=== PATIENT | male | born 1975 | race Caucasian/White ===

== ENCOUNTER → 2018-05-14 07:34 | Outpatient (CLI) | payer OTHER, SELFPAY ==
[2018-05-14 08:13] LABS: Add Manual Diff / Slide Review NO; Basophils Percent Auto 0.6 % (0-2); Eosinophils Percent Auto 7.2 % (2-4); Hemoglobin 14.6 g/dL (13.5-17.5); Lymphocytes Percent Auto 38.1 % (25-40); Mean Corpuscular HGB Conc 33.9 % (30-36); Mean Corpuscular Hemoglobin 31.4 PG (26-34); Mean Corpuscular Volume 92.4 fL (80-100); Monocytes Percent Auto 10.7 % (3-14); Neutrophils Absolute Auto 2000 /uL (3000-5900); Neutrophils Percent Auto 43.4 % (50-75); Platelet Count 188 X10^3/uL (150-400); Red Blood Cell Count 4.66 X10^6/uL (4.5-5.9); Red Cell Distribution Width 12.8 % (11.6-14.8); White Blood Cell Count 4.7 X10^3/uL (4.5-11.0)
[2018-05-14 08:23] LABS: Hemoglobin A1C% w Est Avg Glu 8.6 % (4.0-6.0)
[2018-05-14 08:40] LABS: Creatinine Urine Random 249.5 mg/dL
[2018-05-14 08:43] LABS: Alanine Aminotransferase 33 IU/L (21-72); Albumin 4.6 g/dL (3.5-5.0); Albumin Globulin Ratio 1.6 (1.0-2.8); Alkaline Phosphatase 62 U/L (38-126); Aspartate Aminotransferase 24 IU/L (17-59); Bilirubin Total 0.7 mg/dL (0.2-1.3); Blood Urea Nitrogen 18 mg/dL (9-20); Calcium 9.2 mg/dL (8.4-10.2); Carbon Dioxide 30 mmol/L (22-32); Chloride 99 mmol/L (98-107); Cholesterol 254 mg/dL (140-199); Estimated Glomerular Filt Rate > 60.0 mL/min (>60); Globulin 2.8 g/dL (1.7-4.1); Glucose 162 mg/dL (70-100); HEMOLYSIS < 15 (0-50); Sodium 140 mmol/L (137-145); Total Protein 7.4 g/dL (6.3-8.2); Triglycerides 83 mg/dL (35-150)
[2018-05-14 08:44] LABS: Microalbumi Creatinin Ratio Ur 5.2 ug/mg CR (<30); Microalbumin Urine Random 1.3 mg/dL (0-1.6)
[2018-05-14 09:04] LABS: HDL Cholesterol 123 mg/dL (40-60); LDL Cholesterol Calculated 114 mg/dL (<100)
[2018-05-14 09:09] LABS: Prostate Specific Antigen Scrn 1.66 ng/mL (0.1-4.0); TSH w/ Reflex to FT4 2.09 uIU/mL (0.47-4.68)
== END ==
PROVIDERS: Visit Provider Family Medicine
DX: Z00.00 Encounter for general adult medical examination without abnormal findings (principal); E10.9 Type 1 diabetes mellitus without complications; Z12.5 Encounter for screening for malignant neoplasm of prostate
CPT/HCPCS: 36415; 80053; 80061; 82043; 82570; 83036; 84443; 85025; G0103

== ENCOUNTER → 2018-10-24 11:49 | Outpatient (CLI) | payer OTHER, SELFPAY ==
--- NOTE | 2018-10-24 11:52 | DI.RAD.S_ITS ---
PROCEDURE: XR ANKLE LT MIN 3V INDICATIONS: Rule out fracture of foot/ankle TECHNIQUE: 3 views of the ankle were acquired. COMPARISON: [facility], CR, XR FOOT LT MIN 3V, 10/24/2018, 11:55. FINDINGS: Bones: There are well-corticated osseous body distal to the left distal fibular epiphysis and at the posterior tibiotalar joint. There is a oblique linear lucency through the proximal base of the left fifth metatarsal. Soft tissues: There is a small tibiotalar joint effusion. There is moderate soft tissue swelling about the left ankle. IMPRESSION: 1. No acute fracture or dislocation of the left ankle identified. Recommend followup left ankle radiographs in 7-10 days to rule out an occult fracture given the presence of the moderate left ankle soft tissue swelling and joint effusion. 2. Oblique linear lucency through the proximal base of the left fifth metatarsal may represent a nondisplaced fracture versus unfused physis. 3. Well corticated joint body is distal to the left fibular epiphysis and at the posterior left tibiotalar joint may be the sequela of prior chronic fractures versus degenerative change. Dictated by: Reynaldo Valdez M.D. on 10/24/2018 at 13:19 Approved by: Reynaldo Valdez M.D. on 10/24/2018 at 13:27
--- NOTE | 2018-10-24 11:52 | DI.RAD.S_ITS ---
PROCEDURE: XR FOOT LT MIN 3V INDICATIONS: Rule out fracture of foot/ankle TECHNIQUE: 3 views of the foot were acquired. COMPARISON: None. FINDINGS: Bones: There is oblique linear lucency through the proximal base of the left fifth metatarsal, seen on lateral view. Well corticated bodies are identified projecting posterior to the left tibiotalar joint Soft tissues: There is a small tibiotalar joint effusion. IMPRESSION: Oblique linear lucency through the proximal base of the left metatarsal may represent a nondisplaced fracture versus unfused physis. Recommend followup radiographs in 7-10 days for further evaluation. Dictated by: Reynaldo Valdez M.D. on 10/24/2018 at 13:27 Approved by: Reynaldo Valdez M.D. on 10/24/2018 at 13:31
== END ==
PROVIDERS: PCP Family Medicine; Visit Provider Nurse Practitioner
DX: M25.572 Pain in left ankle and joints of left foot (principal); M25.475 Effusion, left foot
CPT/HCPCS: 73610; 73630

== ENCOUNTER → 2022-06-29 10:57 | Outpatient (CLI) | payer OTHER, SELFPAY ==
[2022-06-29 12:28] LABS: Add Manual Diff / Slide Review NO; Basophils Absolute Auto 0 /uL (0-100); Basophils Percent Auto 0.6 % (0-2); Eosinophils Absolute Auto 100 /uL (0-450); Eosinophils Percent Auto 2.3 % (2-4); Hematocrit 40.1 % (41-53); Hemoglobin 13.8 g/dL (13.5-17.5); Lymphocytes Absolute Auto 1400 /uL (1100-4500); Lymphocytes Percent Auto 29.1 % (25-40); Mean Corpuscular HGB Conc 34.4 % (30-36); Mean Corpuscular Hemoglobin 31.3 PG (26-34); Mean Corpuscular Volume 90.8 fL (80-100); Monocytes Absolute Auto 500 /uL (0-900); Monocytes Percent Auto 10.2 % (3-14); Neutrophils Absolute Auto 2900 /uL (1500-7000); Neutrophils Percent Auto 57.8 % (50-75); Platelet Count 206 X10^3/uL (150-400); Red Blood Cell Count 4.42 X10^6/uL (4.5-5.9); Red Cell Distribution Width 12.5 % (11.6-14.8)
[2022-06-29 12:30] LABS: Hemoglobin A1C% w Est Avg Glu 8.9 % (4.0-6.0)
[2022-06-29 13:14] LABS: Thyroid Stimulating Hormone 0.948 uIU/mL (0.47-4.68)
[2022-06-29 23:49] LABS: Alanine Aminotransferase 22 IU/L (<50); Albumin 4.4 g/dL (3.5-5.0); Albumin Globulin Ratio 1.5 (1.0-2.8); Alkaline Phosphatase 75 U/L (38-126); Aspartate Aminotransferase 21 IU/L (17-59); BUN Creatinine Ratio 17.9 (6-22); Bilirubin Total 0.5 mg/dL (0.2-1.3); Blood Urea Nitrogen 15 mg/dL (9-20); Carbon Dioxide 28 mmol/L (22-32); Chloride 95 mmol/L (98-107); Cholesterol 229 mg/dL (140-199); Estimated Glomerular Filt Rate > 60 mL/min (>60); Globulin 2.9 g/dL (1.7-4.1); Glucose 210 mg/dL (70-100); HDL Cholesterol 88 mg/dL (40-60); HEMOLYSIS < 15 (0-50); LDL Cholesterol Calculated 129 mg/dL (<100); Potassium 4.1 mmol/L (3.4-5.1); Sodium 134 mmol/L (137-145); Total Protein 7.3 g/dL (6.3-8.2); Triglycerides 62 mg/dL (35-150)
[2022-06-30 00:17] LABS: Prostate Specific Antigen Scrn 2.06 ng/mL (0.1-4.0)
== END ==
PROVIDERS: PCP Family Medicine; Referring Provider Family Medicine; Visit Provider Family Medicine
DX: E10.9 Type 1 diabetes mellitus without complications (principal); Z13.220 Encounter for screening for lipoid disorders; Z79.899 Other long term (current) drug therapy; Z12.5 Encounter for screening for malignant neoplasm of prostate; Z13.29 Encounter for screening for other suspected endocrine disorder
CPT/HCPCS: 36415; 80053; 80061; 83036; 84443; 85025; G0103

== ENCOUNTER → 2023-11-20 10:45 | Outpatient (CLI) | payer OTHER, SELFPAY ==
--- NOTE | 2023-11-20 10:46 | DI.RAD.S_ITS ---
PROCEDURE: XR LUMBAR SPINE 2-3V INDICATIONS: low back pain TECHNIQUE: 3 views of the lumbar spine were acquired. COMPARISON: None. FINDINGS: Bones: 5 [id number]-jzmeayu vertebrae are present. There is normal bony alignment. No vertebral body compression fractures. No suspicious bony lesions. Mild degenerative disc disease and facet arthropathy at L4-L5 and L5-S1. Question pars defect at L5. Soft tissues: Overlying bowel gas pattern is normal. No suspicious soft tissue calcifications. IMPRESSION: 1. No acute bony abnormality. 2. Mild degenerative disc and facet disease in lumbar spine. 3. Question pars defect at L5. Consider oblique views. Dictated by: Karol Bustamante M.D. on 11/20/2023 at 13:57 Approved by: Karol Bustamante M.D. on 11/20/2023 at 13:58
--- NOTE | 2023-11-20 10:46 | DI.RAD.S_ITS ---
PROCEDURE: XR CHEST 2V INDICATIONS: cough TECHNIQUE: 2 views of the chest were acquired. COMPARISON: [facility], , CHEST 1 VIEW, 07/04/2012, 11:36. FINDINGS: Surgical changes and devices: None. Lungs and pleura: Lungs are clear. No pleural effusions or pneumothorax. Mediastinum: Mediastinal contours are normal. Heart size is normal. Bones and chest wall: No suspicious bony abnormalities. Soft tissues appear unremarkable. IMPRESSION: No acute cardiopulmonary abnormality is seen. Dictated by: Karol Bustamante M.D. on 11/20/2023 at 13:51 Approved by: Karol Bustamante M.D. on 11/20/2023 at 13:51
== END ==
PROVIDERS: PCP Family Medicine; Referring Provider Family Medicine; Visit Provider Family Medicine
DX: E10.319 Type 1 diabetes mellitus with unspecified diabetic retinopathy without macular edema (principal); E10.9 Type 1 diabetes mellitus without complications; M54.9 Dorsalgia, unspecified; R06.02 Shortness of breath
CPT/HCPCS: 71046; 72100

== ENCOUNTER → 2024-01-12 11:36 | Outpatient (CLI) | payer OTHER, SELFPAY ==
[2024-01-12 12:25] LABS: Add Manual Diff / Slide Review NO; Basophils Absolute Auto 0 /uL (0-100); Basophils Percent Auto 0.8 % (0-2); Eosinophils Absolute Auto 200 /uL (0-450); Eosinophils Percent Auto 3.8 % (2-4); Hemoglobin 14.5 g/dL (13.5-17.5); Lymphocytes Absolute Auto 1400 /uL (1100-4500); Lymphocytes Percent Auto 32.8 % (25-40); Mean Corpuscular HGB Conc 34.5 % (30-36); Mean Corpuscular Hemoglobin 31.9 PG (26-34); Mean Corpuscular Volume 92.5 fL (80-100); Monocytes Absolute Auto 600 /uL (0-900); Monocytes Percent Auto 12.9 % (3-14); Neutrophils Absolute Auto 2200 /uL (1500-7000); Neutrophils Percent Auto 49.7 % (50-75); Platelet Count 207 X10^3/uL (150-400); Red Blood Cell Count 4.54 X10^6/uL (4.5-5.9); White Blood Cell Count 4.4 X10^3/uL (4.5-11.0)
[2024-01-12 13:03] LABS: Alanine Aminotransferase 19 IU/L (<50); Albumin 4.4 g/dL (3.5-5.0); Albumin Globulin Ratio 1.6 (1.0-2.8); Alkaline Phosphatase 62 U/L (38-126); Aspartate Aminotransferase 22 IU/L (17-59); Bilirubin Total 0.5 mg/dL (0.2-1.3); Blood Urea Nitrogen 16 mg/dL (9-20); Calcium 9.2 mg/dL (8.4-10.2); Carbon Dioxide 30 mmol/L (22-32); Chloride 99 mmol/L (98-107); Cholesterol 257 mg/dL (140-199); Estimated Glomerular Filt Rate > 60 mL/min (>60); Globulin 2.8 g/dL (1.7-4.1); Glucose 181 mg/dL (70-100); HEMOLYSIS < 15 (0-50); Potassium 4.1 mmol/L (3.4-5.1); Sodium 136 mmol/L (137-145); Total Protein 7.2 g/dL (6.3-8.2); Triglycerides 34 mg/dL (35-150)
[2024-01-12 13:04] LABS: Hemoglobin A1C% w Est Avg Glu 8.1 % (4.0-6.0)
[2024-01-12 13:13] LABS: HDL Cholesterol 136 mg/dL (40-60); LDL Cholesterol Calculated 114 mg/dL (<100)
[2024-01-12 13:31] LABS: TSH w/ Reflex to FT4 0.82 uIU/mL (0.47-4.68)
[2024-01-12 15:47] LABS: Microalbumin Urine Random < 0.6 mg/dL (0-1.6)
[2024-01-12 17:01] LABS: Creatinine Urine Random 13.39 mg/dL
== END ==
LOC: LAB 11:39
PROVIDERS: PCP Family Medicine; Referring Provider Family Medicine; Visit Provider Family Medicine
DX: E10.319 Type 1 diabetes mellitus with unspecified diabetic retinopathy without macular edema (principal); E10.9 Type 1 diabetes mellitus without complications; M54.9 Dorsalgia, unspecified; R06.02 Shortness of breath
CPT/HCPCS: 36415; 80053; 80061; 82043; 82570; 83036; 84443; 85025

== ENCOUNTER 2024-09-05 11:35 | Emergency (ER) | payer OTHER, SELFPAY ==
[2024-09-05] VITALS (15 sets, daily range): BP systolic 153–183; BP diastolic 81–105; PULSE 73–94; RESP 14–29; TEMP 36.2; O2SAT 95–98; BMI 26.9
--- NOTE | 2024-09-05 11:38 | DI.RAD.S_ITS ---
PROCEDURE: XR CHEST 1V INDICATIONS: chest pain TECHNIQUE: One view of the chest was acquired. COMPARISON: [facility], CR, XR CHEST 2V, 11/20/2023, 10:48. FINDINGS: Surgical changes and devices: None. Lungs and pleura: Lungs are clear. No pleural effusions or pneumothorax. Mediastinum: Mediastinal contours appear normal. Heart size is normal. Bones and chest wall: No suspicious bony lesions. Overlying soft tissues appear unremarkable. IMPRESSION: No acute cardiopulmonary pathology. Dictated by: Mac Mary M.D. on 09/05/2024 at 12:01 Approved by: Mac Mary M.D. on 09/05/2024 at 12:02
--- NOTE | 2024-09-05 11:38 | EKG_ITS ---
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
[2024-09-05 11:51] LABS: Add Manual Diff / Slide Review NO; Basophils Absolute Auto 0 /uL (0-100); Basophils Percent Auto 0.7 % (0-2); Eosinophils Absolute Auto 300 /uL (0-450); Eosinophils Percent Auto 5.7 % (2-4); Hematocrit 43.7 % (41-53); Hemoglobin 14.7 g/dL (13.5-17.5); Lymphocytes Absolute Auto 1600 /uL (1100-4500); Lymphocytes Percent Auto 32.2 % (25-40); Mean Corpuscular HGB Conc 33.7 % (30-36); Mean Corpuscular Hemoglobin 31.6 PG (26-34); Mean Corpuscular Volume 93.7 fL (80-100); Monocytes Absolute Auto 500 /uL (0-900); Monocytes Percent Auto 9.6 % (3-14); Neutrophils Absolute Auto 2600 /uL (1500-7000); Neutrophils Percent Auto 51.8 % (50-75); Platelet Count 194 X10^3/uL (150-400); Red Blood Cell Count 4.66 X10^6/uL (4.5-5.9); Red Cell Distribution Width 13.2 % (11.6-14.8)
[2024-09-05] MEDS: ASPIRIN 81 MG CHEW TAB 324 MG PO (11:59)
[2024-09-05 12:04] LABS: INR 0.9 (0.9-1.3); Prothrombin Time 10.1 SECONDS (9.4-12.5)
[2024-09-05 12:07] LABS: PTT Partial Thromboplastin Tim 31 SECONDS (25.1-36.5)
[2024-09-05 12:10] LABS: Alanine Aminotransferase 37 IU/L (<50); Albumin 4.9 g/dL (3.5-5.0); Albumin Globulin Ratio 1.6 (1.0-2.8); Alkaline Phosphatase 71 U/L (38-126); Aspartate Aminotransferase 37 IU/L (17-59); Bilirubin Total 0.7 mg/dL (0.2-1.3); Blood Urea Nitrogen 14 mg/dL (9-20); Calcium 8.9 mg/dL (8.4-10.2); Carbon Dioxide 23 mmol/L (22-32); Chloride 101 mmol/L (98-107); Creatine Kinase 108 U/L (55-170); Estimated Glomerular Filt Rate > 60 mL/min (>60); Globulin 3.1 g/dL (1.7-4.1); Glucose 150 mg/dL (70-100); HEMOLYSIS < 15 (0-50); Lipase 38 U/L (23-300); Magnesium 1.5 mg/dL (1.6-2.3); Potassium 3.7 mmol/L (3.4-5.1); Sodium 133 mmol/L (137-145)
[2024-09-05 12:22] LABS: NT-proBNP (BNP-Adult 18+) < 20 pg/mL (<125); Troponin I < 0.012 ng/mL (0.01-0.034)
--- NOTE | 2024-09-05 13:44 | EKG_ITS ---
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
[2024-09-05 14:25] LABS: Troponin I < 0.012 ng/mL (0.01-0.034)
[2024-09-05 15:27] LABS: D Dimer 725 ng/ml (<500)
--- NOTE | 2024-09-05 16:34 | DI.CT.S_ITS ---
PROCEDURE: CT ANGIO CHEST PE PROTOCOL INDICATIONS: chest pain, travel TECHNIQUE: After the administration of intravenous contrast, 2 mm thick sections acquired from the pulmonary apices to the posterior costophrenic angles. 3-dimensional maximum intensity projection (MIP) coronal and sagittal reformats were then acquired through the thorax. For radiation dose reduction, the following was used: automated exposure control, adjustment of mA and/or kV according to patient size. COMPARISON: None. FINDINGS: Image quality: Diagnostic. Pulmonary arteries: Pulmonary arteries are normal in size, and demonstrate no intraluminal filling defects to suggest central pulmonary embolism. There are subtle intraluminal filling defect seen in bilateral lower lobe pulmonary artery subsegmental branches best seen on series 4 image 94 and series 4 image 93. Lower Neck: No enlarged lymph nodes. Thyroid: No thyroid nodules which require sonographic follow up, per consensus guidelines. Axillae: No enlarged lymph nodes. Chest Wall: Unremarkable. Bones: Unremarkable. Lungs and Pleura: No pneumothorax or pleural effusions. Bibasilar scarring/atelectasis is seen posteriorly. No consolidation or suspicious nodules. Heart: Heart size is normal. No pericardial effusion. Thoracic Vessels: No aortic aneurysm. Mediastinum and [place]: No enlarged lymph nodes. Esophagus: No wall thickening. No hiatal hernia. Upper Abdomen: Visualized upper abdomen solid organs and bowel loops appear normal. IMPRESSION: 1. No large central pulmonary emboli. Suboptimal opacification of distal subsegmental pulmonary artery branches bilaterally. Concern for small pulmonary emboli in subsegmental branches of bilateral lower lobe pulmonary arteries as above. 2. Bibasilar dependent atelectasis. Bilateral lungs are otherwise clear. 3. No mediastinal or hilar lymphadenopathy. Dictated by: Mac Mary M.D. on 09/05/2024 at 16:57 Approved by: Mac Mary M.D. on 09/05/2024 at 17:04
--- NOTE | 2024-09-05 17:35 | ED_ITS ---
HPI - Chest Pain General Chief Complaint: Chest Pain Stated Complaint: per pt r/o heart attack Time Seen by Provider: 09/05/24 16:34 Source: patient, RN notes reviewed and old records reviewed Mode of arrival: Ambulatory Limitations: no limitations History of Present Illness HPI narrative: 48-year-old male insulin-dependent diabetic since his 20s presents with complaint of midepigastric left-sided substernal chest pain today started about 930 this morning sort of intermittent did not really notice a lot of shortness of breath. Did not note any exertional component. No fevers or chills. [place] little bit nauseated no vomiting. Has a little bit of mild headache, no abdominal back or flank pain otherwise. No diarrhea or constipation, no urinary symptoms. No new swelling of extremities. Patient states he only takes insulin no other daily medications. Has had history of prior appendectomy. Allergy to penicillin. No tobacco, 2 alcoholic drinks daily no recreational drugs. Dad has a history of cardiac stents. Patient did recently have some long distance travel in his vehicle on Monday. His primary care physician is Dr. Valente. Related Data Previous Rx's Medication Instructions Recorded Accucheck Blood Glucose Meter #1 ea 04/17/19 blood-glucose meter,continuous #1 ea 06/29/22 insulin syringes (disposable) 1 mL #500 ea 06/29/22 needle (disp) 30 gauge 30 gauge x #100 ea 06/29/22 1/ (BD Specialty Use [place]) pen needle, diabetic 31 gauge x #100 ea 06/29/22/16 (BD Ultra-Fine Short Pen Needle) blood sugar diagnostic (Accu-Chek #500 strips 01/16/24 Pamela Plus test strips) insulin glargine 100 unit/mL 35 unit (0.35 mL) SUBCUT DAILY #30 01/16/24 subcutaneous solution (Lantus mL U-100 Insulin) blood-glucose meter,continuous #1 ea 01/18/24 (Dexcom G6 Linux Engineer) blood-glucose transmitter (Dexcom #1 ea 01/18/24 G6 Transmitter device) insulin aspart U-100 100 unit/mL 1 unit (0.01 mL) SUBCUT 3XD #45 mL 03/26/24 (3 mL) subcutaneous pen blood-glucose sensor (Dexcom G6 #3 ea 05/21/24 Sensor device) rivaroxaban 15 mg (42)-20 mg (9) See Rx Instructions PO .COMPLEX 09/05/24 tablets in a starter pack (Xarelto #51 ea DVT-PE Treatment 30-Day Starter) Allergies Allergy/AdvReac Type Severity Reaction Status Date / Time Penicillins Allergy Severe Hives Verified 09/05/24 11:39 Review of Systems Review of Systems ROS Unobtainable: All systems reviewed & are unremarkable except as noted in HPI and below Patient History Medical History Shoulder pain Diabetes mellitus Surgical History Anesthesia History of surgical removal of ganglion cyst (~2010) Status post appendectomy (~05/1997) Family History Father Age: 79 Heart disease Essential hypertension Mother Age: 78 Malignant neoplasm of female breast, unspecified laterality, unspecified site of breast Fibromyalgia Sister Age: 52 Fibromyalgia Social History marital status: Smoking Status: Never smoker alcohol intake: current substance use type: does not use Smoking Status: Never smoker Exam Narrative Exam Narrative: GENERAL: Alert and oriented x three, well-appearing male in mild distress HEENT: Head normocephalic, atraumatic, EOMI, pupils reactive, face symmetric, moist mucous membranes NECK: Supple, full range of motion CARDIOVASCULAR: Regular rate and rhythm without murmurs, rubs or gallops. No JVD. No edema bilateral lower extremities. RESPIRATORY: Breath sounds equal bilaterally, no wheezes rales or rhonchi. No tachypnea or accessory muscle use. Speaks in full sentences. ABDOMEN: Soft, nontender. Normoactive bowel sounds all 4 quadrants. No guarding or rebound, rigidity, no mass : No CVA tenderness EXTREMITIES: Normal range of motion, no clubbing or edema. Neurovascularly intact NEUROLOGICAL: Cranial nerves II through XII grossly intact. Moving all extremities. Patient ambulated here in the department without any issue. SKIN: Warm, dry, no petechiae, no rashes or lesions. Initial Vital Signs Initial Vital Signs: Vital Signs Temperature 97.2 F L 09/05/24 11:38 Pulse Rate 86 09/05/24 11:38 Respiratory Rate 14 09/05/24 11:38 Blood Pressure 183/92 H 09/05/24 11:38 Pulse Oximetry 97 09/05/24 11:38 Oxygen Delivery Method Room Air 09/05/24 11:38 Course Orders Ordered: ED Orders 09/05/24 11:38 XR chest 1V Stat EKG-12 Lead Stat 09/05/24 11:42 Complete Blood Count AUTO DIFF Stat Comprehensive Metabolic Panel Stat D Dimer Stat Lipase Stat Magnesium Stat NT-proBNP (BNP-Adult 18+) Stat PTT Partial Thromboplastin Brian Stat Prothrombin Time INR Stat Troponin & CK Cardiac Panel Stat 09/05/24 13:41 EKG-12 Lead Stat 09/05/24 13:43 Troponin I Stat 09/05/24 16:34 CT angio chest PE protocol Stat Discontinued Medications Aspirin (Aspirin 81 Mg Chew Tab) 324 mg PO NOW ONE Stop: 09/05/24 11:39 Last Admin: 09/05/24 11:59 Dose: 81 mg Documented By: TONIE Rivaroxaban (Rivaroxaban 10 Mg Tablet) 20 mg PO NOW ONE Stop: 09/05/24 17:45 Last Admin: 09/05/24 17:55 Dose: 20 mg Documented By: JOSE EDUARDO Vital Signs Vital signs: Vital Signs - 8 hr 09/05/24 13:28 09/05/24 13:29 09/05/24 13:29 Pulse Rate 94 H 92 H Respiratory Rate Blood Pressure 170/84 H Pulse Oximetry 97 98 09/05/24 13:30 09/05/24 14:00 09/05/24 14:00 Pulse Rate 75 80 Respiratory Rate 26 H 27 H Blood Pressure 158/101 H Pulse Oximetry 97 98 09/05/24 14:31 09/05/24 14:37 09/05/24 14:37 Pulse Rate 75 75 Respiratory Rate 23 Blood Pressure 180/86 H Pulse Oximetry 98 97 09/05/24 15:00 09/05/24 15:00 09/05/24 15:30 Pulse Rate 74 Respiratory Rate 18 Blood Pressure 153/81 H 166/92 H Pulse Oximetry 96 09/05/24 15:30 09/05/24 16:00 09/05/24 16:00 Pulse Rate 74 73 Respiratory Rate 16 21 Blood Pressure 171/103 H Pulse Oximetry 95 97 09/05/24 16:30 09/05/24 16:30 09/05/24 17:00 Pulse Rate 76 81 Respiratory Rate 18 21 Blood Pressure 163/92 H Pulse Oximetry 97 98 09/05/24 17:30 09/05/24 17:57 09/05/24 17:57 Pulse Rate 76 77 Respiratory Rate 23 29 H Blood Pressure 153/105 H Pulse Oximetry 97 96 09/05/24 18:00 Pulse Rate 76 Respiratory Rate 23 Blood Pressure Pulse Oximetry 95 MDM - Chest Pain Lab Data 09/05/24 11:42 09/05/24 11:42 Labs: Lab Results 09/05/24 09/05/24 Range/Units 11:42 13:43 WBC 5.0 (4.5-11.0) X10^3/uL RBC 4.66 (4.5-5.9) X10^6/uL Hgb 14.7 (13.5-17.5) g/dL Hct 43.7 (41-53) % MCV 93.7 (80-100) fL MCH 31.6 (26-34) PG MCHC 33.7 (30-36) % RDW 13.2 (11.6-14.8) % Plt Count 194 (150-400) X10^3/uL Neut % (Auto) 51.8 (50-75) % Lymph % (Auto) 32.2 (25-40) % [place] % (Auto) 9.6 (3-14) % Eos % (Auto) 5.7 H (2-4) % Baso % (Auto) 0.7 (0-2) % Neut # (Auto) 2600 (8258-9615) /uL Lymph # (Auto) 1600 (8477-9461) /uL [place] # (Auto) 500 (0-900) /uL Eos # (Auto) 300 (0-450) /uL Baso # (Auto) 0 (0-100) /uL PT 10.1 (9.4-12.5) SECONDS INR 0.9 (0.9-1.3) APTT 31 (25.1-36.5) SECONDS D-Dimer 725 H (<500) ng/ml Sodium 133 L (137-145) mmol/L Potassium 3.7 (3.4-5.1) mmol/L Chloride 101 (98-107) mmol/L Carbon Dioxide 23 (22-32) mmol/L BUN 14 (9-20) mg/dL Creatinine 1.00 (0.66-1.25) mg/dL Estimated GFR > 60 (>60) mL/min BUN/Creatinine Ratio 14.0 (6-22) Glucose 150 H (70-100) mg/dL Calcium 8.9 (8.4-10.2) mg/dL Magnesium 1.5 L (1.6-2.3) mg/dL Total Bilirubin 0.7 (0.2-1.3) mg/dL AST 37 (17-59) IU/L ALT 37 (<50) IU/L Alkaline Phosphatase 71 (38-126) U/L Total Creatine Kinase 108 (55-170) U/L Troponin I < 0.012 < 0.012 (0.01-0.034) ng/mL NT-Pro-B Natriuret Pep < 20 (<125) pg/mL Total Protein 8.0 (6.3-8.2) g/dL Albumin 4.9 (3.5-5.0) g/dL Globulin 3.1 (1.7-4.1) g/dL Albumin/Globulin Ratio 1.6 (1.0-2.8) Lipase 38 (23-300) U/L ECG Data Attestation: I personally reviewed and interpreted this ECG as follows: Interpretation: EKG shows sinus rhythm rate of 79 CT 174 QRS of 124 QTC of [address] elevation or depression. Repeat EKG shows sinus rhythm nonspecific change rate of 78, CT 204, QRS of 122 QTC 458 MDM Narrative Medical decision making narrative: 48-year-old male history insulin-dependent diabetes has complaint of substernal chest pain epigastric, does have cardiac risk factor secondary to his insulin is not on any medications for hypertension or dyslipidemia. Does note he was recently traveled so D-dimer was included in cardiac workup. Labs including CBC shows normal white count, hemoglobin and platelets. Coags were negative but D-dimer is elevated at 725. Labs show sodium 133 otherwise appropriate electrolytes glucose is 150 Mag slightly low at 1.5, troponins less than 0.012 with a repeat troponin less than 0.012 and a BNP of less than 20. Chest x-ray shows no acute change CT angio of the chest was obtained secondary to the elevated dimer substernal chest pain no large central PE suboptimal opacification distal subsegmental pulmonary artery branches bilaterally but concern for small pulmonary emboli in the subsegmental branches of bilateral lower lobe pulmonary arteries there is subtle intraluminal filling defects seen best on series, image 94 and series 4, image 93. No pneumothorax or pleural effusions, bibasilar scarring/atelectasis. Patient has not had any signs of right heart strain, normal cardiac workup, negative troponins no elevated BNP patient has not been tachycardic hypotensive or hypoxic. PESI score is 59 points, class 1 Hestia criteria, patient has 0 points, low risk elegible for outpatient treatment. Discussed with patient we will start oral anticoagulants we will send prescription to pharmacy. Patient was to follow up with primary care for rechecked. Suspect potential provoked pulmonary embolism secondary to recent long distance travel discussed return precautions all questions answered. Did discuss with the patient if medications are extremely expensive to have pharmacy call back as we may just need to alter his prescription and will not know until it is run through the insurance. Discharge Plan Departure Patient Disposition: Home Clinical Impression: Pulmonary embolism Instructions: DI for Pulmonary Embolism Activity Restrictions/Additional Instructions: On your imaging you have been found to have some small pulmonary emboli in the subsegmental branches of the lower bilateral pulmonary arteries or blood clots. Follow up with your physician for recheck they may do some additional testing and we will need to refill your medications/blood thinner and you will need to take blood thinners for 6-12 months. Blood clots are treated with anticoagulants or blood thinners. You received a dose here in the emergency department your next dose would be due in the next 12 hours. Take oral anticoagulation as prescribed, you will take 15 mg twice daily by mouth times 21 days then transition to 20 mg once daily. A prescription was sent to [facility] in [place]. If this prescription is very expensive please have the pharmacy reach out to us and we can alter the medication. Please return for fevers, new chest pain or shortness of breath, lightheadedness or passing out, new swelling of your extremities, any vomiting, diaphoresis or other new or concerning changes. Prescriptions: New Xarelto DVT-PE Treat 30d Start 15 mg (42)- 20 mg (9) tablets,dose pack See Rx Instructions .ROUTE .COMPLEX Qty: 51 0RF Rx Instructions: take one-15 mg tablet twice daily for 21 days, then one-20 mg tablet once daily; must take with meal/food No Action (DME) Dexcom G4 Linux Engineer-Share Kit Misc See Dose Instructions .ROUTE .MEDSUPPLY Qty: 1 0RF Dose Instruction: As directed Rx Instructions: Use to monitor blood sugar as directed (DME) BD Specialty Use [place] 30 gauge x 1/2 needle See Dose Instructions .ROUTE .MEDSUPPLY Qty: 100 11RF Dose Instruction: As directed Rx Instructions: Use for insulin administration three times daily (DME) pen needle, diabetic [BD Ultra-Fine Short Pen Needle] 31 gauge x 5/16 needle See Rx Instructions .Route Qty: 100 11RF Rx Instructions: use to inject insulin daily as directed (DME) insulin syringes (disposable) 1 mL syringe See Rx Instructions .ROUTE .MEDSUPPLY Qty: 500 11RF Rx Instructions: Use to inject Lantus daily as directed (DME) Accucheck Blood Glucose Meter Qty: 1 0RF Rx Instructions: As directed to check blood glucose 4-6 times daily Lantus U-100 Insulin 100 unit/mL solution 35 unit SUBCUT DAILY Qty: 30 6RF (DME) Accu-Chek Pamela Plus test strp Strip See Rx Instructions .ROUTE .COMPLEX Qty: 500 11RF Dose Instruction: CHECK BLOOD GLUCOSE 4 TO 6 TIMES DAILY Rx Instructions: CHECK BLOOD GLUCOSE 4 TO 6 TIMES DAILY (DME) Dexcom G6 Linux Engineer Misc See Rx Instructions .Route Qty: 1 3RF Rx Instructions: use to monitor blood sugar daily as directed (DME) Dexcom G6 Transmitter Device See Rx Instructions .Route Qty: 1 3RF Rx Instructions: use to monitor blood sugar daily as directed insulin aspart U-100 100 unit/mL (3 mL) insulin pen 1 unit SUBCUT 3XD Qty: 45 3RF (DME) Dexcom G6 Sensor Device See Rx Instructions .ROUTE .COMPLEX Qty: 3 3RF Dose Instruction: USE TO MONITOR BLOOD SUGAR DAILY DIRECTED Rx Instructions: USE TO MONITOR BLOOD SUGAR DAILY DIRECTED Referrals: James Valente MD [Primary Care Provider] - Stand Alone Forms: Patient Portal/API/Survey
[2024-09-05] MEDS: RIVAROXABAN 10 MG TABLET 20 MG PO (17:55)
== END 2024-09-05 18:39 | disposition home or self-care (01) ==
PROVIDERS: Emergency Provider Emergency Medicine; PCP Family Medicine
DX: I26.99 Other pulmonary embolism without acute cor pulmonale (principal); R07.9 Chest pain, unspecified; E11.9 Type 2 diabetes mellitus without complications; Z79.4 Long term (current) use of insulin; Z88.0 Allergy status to penicillin
CPT/HCPCS: 36415; 71045; 71275; 80053; 82550; 83690; 83735; 83880; 84484; 85025; 85379; 85610; 85730; 93005; 93010; 99284; 99285; Q9967